=== PATIENT | female | born 1955 | race Caucasian/White ===

== ENCOUNTER → 2024-05-13 10:29 | Outpatient (REF) | payer OTHER, SELFPAY | LOC: WDC 10:29 | PROVIDERS: ATTENDING PHYSICIAN Internal Medicine | DX: Z12.31 Encounter for screening mammogram for malignant neoplasm of breast (principal) | CPT/HCPCS: 77063; 77067 ==

== ENCOUNTER → 2024-07-17 09:25 | Outpatient (REF) | payer OTHER, SELFPAY | LOC: RAD 09:25 | PROVIDERS: ATTENDING PHYSICIAN Podiatrist Foot Surgery; FAMILY PHYSICIAN Internal Medicine | DX: N95.9 Unspecified menopausal and perimenopausal disorder (principal) | CPT/HCPCS: 77080 ==